=== PATIENT | male | born 1945 | race African-American/Black ===

== ENCOUNTER → 2016-06-26 | Outpatient (CLI) | payer MEDICARE | END | disposition home or self-care (01) | LOC: CARD 13:50 | PROVIDERS: ATTEND Family Medicine | DX: R09.02 Hypoxemia (principal) | CPT/HCPCS: 94060; 94726; 94729 ==

== ENCOUNTER 2016-08-06 13:12 | Emergency (ER) | payer MEDICARE ==
[~2016-08-06] VITALS: Ht 188 cm; Wt 128.0 kg
[2016-08-06 13:14] VITALS: BP 152/94
[2016-08-06] MEDS ORDERED: OXYcodone/APAP 5/325MG TABLET PO ONE (13:30)
[2016-08-06] MEDS ORDERED: OXYcodone/APAP 5/325MG TABLET ONE (13:34)
== END 2016-08-06 14:41 | disposition home or self-care (01) ==
LOC: ED 13:29
DX: S82.035A Nondisplaced transverse fracture of left patella, initial encounter for closed fracture (principal); W19.XXXA Unspecified fall, initial encounter; Y93.89 Activity, other specified; Y92.89 Other specified places as the place of occurrence of the external cause; Y99.8 Other external cause status
CPT/HCPCS: 29505

== ENCOUNTER 2016-08-15 13:27 | Observation (INO) | payer MEDICARE ==
[~2016-08-15] VITALS: Ht 188 cm; Wt 130.5 kg
[2016-08-15] MEDS ORDERED: BACITRACIN OINT 500U/GM, 15 GM ONE (13:41)
[2016-08-15] MEDS ORDERED: EPINEPHRINE 1 MG/ML, 1ML ONE (13:42)
[2016-08-15] MEDS ORDERED: BUPIVACAINE/PF 0.5% ONE (13:42)
[2016-08-15 14:25] VITALS: BP 163/95
[2016-08-15] MEDS ORDERED: FENTANYL PF 250 MCG/5ML ONE (14:26)
[2016-08-15] MEDS ORDERED: MIDAZOLAM 1 MG/ML, 2ML ONE (14:26)
[2016-08-15] MEDS ORDERED: LACTATED RINGERS 1,000 ML IV SCH (14:32)
[2016-08-15] MEDS ORDERED: ROPIvacaine/PF 0.5%, 20 ML ONE (14:38)
[2016-08-15] MEDS ORDERED: PERCOCET (14:56)
[2016-08-15] MEDS ORDERED: hydrALAzine 20 MG/ML, 1ML ONE (15:23)
[2016-08-15] MEDS ORDERED: DEXAMETHASONE 4 MG/ML, 1ML ONE (15:23)
[2016-08-15] MEDS ORDERED: CEFAZOLIN 1,000 MG ONE (15:23)
[2016-08-15] MEDS ORDERED: ONDANSETRON 2MG/ML, 2ML ONE (15:23)
[2016-08-15] MEDS ORDERED: PROPOFOL 10 MG/ML, 20ML ONE (15:23)
[2016-08-15 15:24] LABS: ASPARTATE AMINO TRANSFERASE 152 U/L (15-37); BLOOD UREA NITROGEN 21 mg/dL (7-18)
[2016-08-15] MEDS ORDERED: hydrALAzine 20 MG/ML, 1ML IV PRN (16:00)
[2016-08-15] MEDS ORDERED: HYDROmorphone 1 MG/ML, 1ML IV PRN (16:00)
[2016-08-15] MEDS ORDERED: METOCLOPRAMIDE 5 MG/ML, 2ML IV PRN (16:00)
[2016-08-15] MEDS ORDERED: FENTANYL PF 100 MCG/2ML IV PRN (16:00)
[2016-08-15] MEDS ORDERED: OXYcodone 5 MG/5 ML ORAL.SOL UDC PO PRN ×2 (16:00→17:00)
[2016-08-15] MEDS ORDERED: ONDANSETRON 2MG/ML, 2ML IVPush PRN ×2 (16:00→17:00)
[2016-08-15] MEDS ORDERED: LABETALOL 5MG/ML, 20ML IV PRN (16:00)
[2016-08-15] MEDS ORDERED: ACETAMINOPHEN 325 MG TABLET PO PRN ×2 (16:00→17:00)
[2016-08-15] MEDS ORDERED: OXYcodone 5 MG/5 ML ORAL.SOL UDC ONE (16:58)
[2016-08-15] MEDS ORDERED: FENTANYL PF 100 MCG/2ML ONE (16:58)
[2016-08-15] MEDS ORDERED: PROMETHAZINE 25 MG/ML, 1ML IM PRN (17:00)
[2016-08-15] MEDS ORDERED: MORPHINE SULFATE 4 MG/ML, 1ML IVPush PRN (17:00)
[2016-08-15] MEDS ORDERED: SENNA/DOCUSATE TABLET PO PRN (17:00)
[2016-08-15] MEDS ORDERED: BISACODYL 10 MG SUPP PR PRN (17:00)
[2016-08-15] MEDS ORDERED: DIAZEPAM 5 MG TABLET PO PRN (17:00)
[2016-08-15] MEDS ORDERED: ENOXAPARIN 40 MG/0.4 ML SQ SCH (17:00)
[2016-08-15] MEDS ORDERED: MAGNESIUM HYDROXIDE 8%, 30ML UDC PO PRN (17:00)
[2016-08-15] MEDS ORDERED: HYDROcodone/APAP 5/325 TABLET PO PRN (17:00)
[2016-08-15 19:01] VITALS: BP 128/71
[2016-08-15] MEDS: D5%-0.45% NACL 1,000 ML IV SCH (20:03)
[2016-08-15] MEDS: DOCUSATE 100 MG CAPSULE PO SCH (20:46)
[2016-08-16 00:06] VITALS: BP 133/76
[2016-08-16] MEDS: CEFAZOLIN PMX 2GM/50ML 50 ML IVPB SCH ×2 (00:13→08:22)
[2016-08-16 03:46] VITALS: BP 157/91
[2016-08-16] MEDS: D5%-0.45% NACL 1,000 ML IV SCH (08:20)
[2016-08-16] MEDS: DOCUSATE 100 MG CAPSULE PO SCH (08:22)
[2016-08-16 08:25] VITALS: BP 134/67
[2016-08-16] MEDS ORDERED: ASPI-650 PO (11:12)
[2016-08-16] MEDS ORDERED: OXYC5CAP4 PO (11:12)
== END 2016-08-16 11:32 | disposition home or self-care (01) ==
LOC: OUT 13:27 → ORIP 16:57 → 4NOR 17:57 → DCLOUNGE 08-16 11:32
PROVIDERS: ADMIT Orthopaedic Surgery; ATTEND Orthopaedic Surgery
DX: S82.032A Displaced transverse fracture of left patella, initial encounter for closed fracture (principal); I10 Essential (primary) hypertension; F12.90 Cannabis use, unspecified, uncomplicated; W18.30XA Fall on same level, unspecified, initial encounter; Y92.89 Other specified places as the place of occurrence of the external cause; Y93.89 Activity, other specified; Y99.8 Other external cause status; Z87.891 Personal history of nicotine dependence
CPT/HCPCS: 27524; 36415; 73560; 76001; 80053; 85025; 93005; 96365; 96372; 96375; 97116; 97162; C1713; G0378; J0171; J0360; J0690; J1100; J1650; J2250; J2405; J2704; J2795; J3010; J3490; J7120

== ENCOUNTER 2016-08-16 12:53 | Emergency (ER) | payer MEDICARE ==
[~2016-08-16] VITALS: Ht 188 cm; Wt 94.0 kg
[~2016-08-16 12:53] MED LIST: ASPI-650 PO; OXYC5CAP4 PO; PERCOCET
[2016-08-16 13:08] VITALS: BP 164/82
== END 2016-08-16 14:50 | disposition home or self-care (01) ==
LOC: ED 14:10
DX: S82.035A Nondisplaced transverse fracture of left patella, initial encounter for closed fracture (principal); I10 Essential (primary) hypertension; Z87.891 Personal history of nicotine dependence; W01.0XXA Fall on same level from slipping, tripping and stumbling without subsequent striking against object, initial encounter; Y93.89 Activity, other specified; Y92.89 Other specified places as the place of occurrence of the external cause; Y99.8 Other external cause status
CPT/HCPCS: 99284

== ENCOUNTER → 2017-03-07 | Outpatient (CLI) | payer MEDICARE ==
[~2017-03-07] MED LIST changes: +OXYC5CAP2 PO; -OXYC5CAP4 PO
== END | disposition home or self-care (01) ==
LOC: CFH 07:14
PROVIDERS: ATTEND Physician Assistant
DX: K76.89 Other specified diseases of liver (principal); B18.2 Chronic viral hepatitis C
CPT/HCPCS: 76705

== ENCOUNTER → 2017-09-10 | Outpatient (CLI) | payer MEDICARE, OTHER | END | disposition home or self-care (01) | LOC: CFH 07:58 → EDSTATUS 08:30 | PROVIDERS: ATTEND Physician Assistant | DX: B18.2 Chronic viral hepatitis C (principal) | CPT/HCPCS: 76705 ==

== ENCOUNTER → 2018-03-12 | Outpatient (CLI) | payer MEDICARE | END | disposition home or self-care (01) | LOC: CFH 06:53 | PROVIDERS: ATTEND Physician Assistant | DX: B18.2 Chronic viral hepatitis C (principal) | CPT/HCPCS: 76705 ==

== ENCOUNTER 2018-06-04 13:10 | Emergency (ER) | payer MEDICARE ==
[~2018-06-04] VITALS: Ht 188 cm; Wt 144.8 kg
[2018-06-04] MEDS ORDERED: SODIUM CHLORIDE FLUSH 10ML SYR IVF ONE (14:00)
[2018-06-04 14:17] VITALS: BP 204/100
--- NOTE | 2018-06-04 14:17 | NUR ---
pt resting in gurney, labs and xray done, pt unable to produce urine sample at this time. states he cannot go
[2018-06-04 14:25] LABS: BASOPHILS % (AUTO) 0 % (0-1); EOSINOPHILS # (AUTO) 0.07 x10^3/uL (0-0.4); EOSINOPHILS % (AUTO) 1 % (1-7); LYMPHOCYTES # (AUTO) 1.46 x10^3/uL (1-3.4); LYMPHOCYTES % (AUTO) 16 % (22-44); MD NO; MEAN CORPUSCULAR HEMOGLOBIN 30.2 pg (27.5-34.5); MEAN CORPUSCULAR HGB CONC 33.9 g/dL (33.2-36.2); MEAN CORPUSCULAR VOLUME 89.3 fL (81-97); MEAN PLATELET VOLUME 8.8 fL (7.4-10.4); MONOCYTES # (AUTO) 0.59 x10^3/uL (0.2-0.8); MONOCYTES % (AUTO) 6 % (2-9); NEUTROPHILS # (AUTO) 7.26 x10^3/uL (1.8-6.8); NEUTROPHILS % (AUTO) 77 % (42-75); PLATELET COUNT 196 x10^3/uL (130-400); RED BLOOD COUNT 4.64 x10^6/uL (4.38-5.82)
[2018-06-04 14:33] LABS: INTERNATIONAL NORMALIZED RATIO 1.09 (0.93-1.1); PROTHROMBIN TIME 11.4 Seconds (9.6-11.5)
[2018-06-04 14:36] LABS: ALANINE AMINOTRANSFERASE 23 U/L (12-78); ALBUMIN 3.4 g/dL (3.4-5.0); ANION GAP 9 mmol/L (5-15); CALCIUM 9.7 mg/dL (8.5-10.1); CHLORIDE 108 mmol/L (98-107); CREATININE 0.95 mg/dL (0.7-1.3)
[2018-06-04 14:40] LABS: ALKALINE PHOSPHATASE 73 U/L (45-117); BILIRUBIN,TOTAL 0.6 mg/dL (0.2-1.0); TOTAL PROTEIN 8.3 g/dL (6.4-8.2); TROPONIN I < 0.015 ng/mL (0.000-0.045)
[2018-06-04 15:12] LABS: MICROSCOPIC AUTO
[2018-06-04 15:17] LABS: CULTURE INDICATED? NO
== END 2018-06-04 15:36 | disposition home or self-care (01) ==
LOC: ED 14:59
DX: J06.9 Acute upper respiratory infection, unspecified (principal); I10 Essential (primary) hypertension; M19.90 Unspecified osteoarthritis, unspecified site
CPT/HCPCS: 36415; 71045; 80053; 81001; 83605; 83880; 84145; 84484; 85025; 85610; 87040; 93005; 99284

== ENCOUNTER 2019-02-13 17:13 | Emergency (ER) | payer MEDICARE ==
[~2019-02-13] VITALS: Ht 188 cm; Wt 141.1 kg
[2019-02-13 17:55] VITALS: BP 150/85
--- NOTE | 2019-02-13 18:00 | NUR ---
PT HERE WITH C/O RIGHT BACK OF THIGH PAIN AND RIGHT BIG TOE PAIN. PT STATES IT HAS BEEN ONGOING APPROX. 1 WEEK. PT DRESSED IN GOWN, ATTACHED TO MONITOR, CALL LIGHT WITHIN REACH, NAD, ROOM AIR, SIDERAIL X [address] US AT BEDSIDE.
--- NOTE | 2019-02-13 18:46 | NUR ---
Patient/Caregiver given discharge instructions and they have confirmed that they understand the instructions. Patient ambulatory with steady gait.
== END 2019-02-13 18:50 | disposition home or self-care (01) ==
LOC: ED 17:38
DX: M79.674 Pain in right toe(s) (principal); I10 Essential (primary) hypertension
CPT/HCPCS: 99284

== ENCOUNTER 2020-03-15 19:31 | Emergency (ER) | payer MEDICARE ==
[~2020-03-15] VITALS: Ht 188 cm; Wt 145.1 kg
[~2020-03-15 19:31] MED LIST changes: -ASPI-650 PO; +ASPI325T20 PO
[2020-03-15 20:38] LABS: BASOPHILS % (AUTO) 1 % (0-1); EOSINOPHILS % (AUTO) 2 % (1-7); LYMPHOCYTES % (AUTO) 24 % (22-44); MEAN CORPUSCULAR HGB CONC 33.6 g/dL (33.2-36.2); MEAN PLATELET VOLUME 9.3 fL (7.4-10.4); MONOCYTES % (AUTO) 9 % (2-9); NEUTROPHILS % (AUTO) 64 % (42-75); PLATELET COUNT 188 x10^3/uL (130-400); RED BLOOD COUNT 4.88 x10^6/uL (4.38-5.82); RED CELL DISTRIBUTION WIDTH 14.6 % (9.4-14.8)
[2020-03-15 20:43] LABS: MD NO
[2020-03-15 20:51] LABS: ALANINE AMINOTRANSFERASE 29 U/L (12-78); ALBUMIN 3.7 g/dL (3.4-5.0); ANION GAP 4 mmol/L (5-15); CHLORIDE 108 mmol/L (98-107); CREATININE 1.02 mg/dL (0.7-1.3)
[2020-03-15 20:51] LABS: MICROSCOPIC NOT IND
[2020-03-15 20:53] LABS: ALKALINE PHOSPHATASE 69 U/L (45-117); BILIRUBIN,TOTAL 0.5 mg/dL (0.2-1.0)
[2020-03-15] MEDS ORDERED: ONDANSETRON 2MG/ML, 2ML ONE (22:22)
[2020-03-15] MEDS ORDERED: MORPHINE SULFATE 4 MG/ML, 1ML ONE (22:22)
[2020-03-15] MEDS ORDERED: ONDANSETRON 2MG/ML, 2ML IVPush ONE (22:30)
[2020-03-15] MEDS ORDERED: MORPHINE SULFATE 4 MG/ML, 1ML IVPush PRN (22:30)
[2020-03-15 23:27] VITALS: BP 151/70
== END 2020-03-15 23:40 | disposition home or self-care (01) ==
LOC: ED 19:51
DX: R10.11 Right upper quadrant pain (principal); M19.90 Unspecified osteoarthritis, unspecified site; R07.89 Other chest pain; R05 Cough; I10 Essential (primary) hypertension
CPT/HCPCS: 36415; 71045; 76700; 80053; 81003; 83690; 84145; 85025; 96374; 96375; 99285; J2270; J2405